=== PATIENT | female | born 1940 | race Hispanic/Latino ===

== ENCOUNTER 2021-03-04 10:03 | Outpatient (CLI) | payer MEDICARE | END 2021-03-04 10:04 | disposition home or self-care (01) | LOC: CSHMAMMO 10:03 | PROVIDERS: ATTEND Family Medicine | DX: Z12.31 Encounter for screening mammogram for malignant neoplasm of breast (principal) | CPT/HCPCS: 77063; 77067 ==

== ENCOUNTER 2021-12-11 09:16 | Outpatient (CLI) | payer MEDICARE ==
[2021-12-11 21:30] LABS: SARS-CoV-2 PCR by NAA Not Detected (NotDetected)
== END 2021-12-11 09:17 | disposition home or self-care (01) ==
LOC: CSHLAB 09:16
PROVIDERS: ATTEND Surgery
DX: Z20.822 Contact with and (suspected) exposure to COVID-19 (principal)
CPT/HCPCS: U0003; U0005

== ENCOUNTER 2021-12-13 09:18 | Outpatient (CLI) | payer MEDICARE ==
[2021-12-13 10:19] LABS: Hemoglobin 12.1 g/dL (12.0-15.5); Mean Corpuscular HGB CONC 32.3 g/dL (32.0-36.0); Mean Corpuscular Hemoglobin 30.6 pg (27.0-33.0); Mean Corpuscular Volume 94.9 fl (81.6-98.3); Platelet Count 325 10x3/uL (150-450); RBC Distribution Width 12.7 % (11.5-14.5); Red Blood Cell (RBC) Count 3.95 10x6/uL (3.90-5.03); White Blood Cell (WBC) Count 6.8 10x3/uL (3.5-10.5)
[2021-12-13 10:44] LABS: ALT (SGPT) 116 U/L (8-55); AST (SGOT) 122 U/L (5-34); Albumin 4.2 g/dL (3.4-4.8); Alkaline Phosphatase 329 U/L (40-110); Anion Gap 13 mmol/L (10-20); BUN (Urea Nitrogen) 7 mg/dL (9.8-20.1); Bilirubin, Total 1.5 mg/dL (0.2-1.2); Calc. Creatinine Clearance 0 mL/min (70-130); Calcium 10.2 mg/dL (7.8-10.44); Carbon Dioxide 28 mmol/L (23-31); Chloride 103 mmol/L (98-107); Globulin 2.8 g/dL (2.4-3.5); Glucose 116 mg/dL (83-110); Sodium 140 mmol/L (136-145)
[2021-12-13 19:56] LABS: SARS-CoV-2 PCR by NAA Not Detected (NotDetected)
== END 2021-12-13 09:19 | disposition home or self-care (01) ==
LOC: CSHLAB 09:18
PROVIDERS: ATTEND Surgery
DX: Z01.818 Encounter for other preprocedural examination (principal); Z20.822 Contact with and (suspected) exposure to COVID-19
CPT/HCPCS: 80053; 85027; 93005; 93010; U0003; U0005

== ENCOUNTER 2021-12-16 09:23 | Outpatient (CLI) | payer MEDICARE | END 2021-12-16 09:24 | disposition home or self-care (01) | LOC: CSHRAD 09:23 | PROVIDERS: ATTEND Surgery | DX: K80.50 Calculus of bile duct without cholangitis or cholecystitis without obstruction (principal); K21.9 Gastro-esophageal reflux disease without esophagitis | CPT/HCPCS: 74246 ==

== ENCOUNTER 2021-12-17 06:21 | Day surgery (SDC) | payer MEDICARE, OTHER ==
[2021-12-16 11:23] VITALS: BMI 25.8
[2021-12-17] MEDS ORDERED: EPINEPHrine 1 MG/ML AMP ONE (06:42)
[2021-12-17] MEDS ORDERED: Bupivacaine 0.25% HCL 30 ML VIAL ONE (06:42)
[2021-12-17] MEDS ORDERED: Iopamidol 0 ML ONE (07:00)
[2021-12-17] MEDS ORDERED: Lidocaine 1% MPF 2 ML VIAL ONE (07:00)
[2021-12-17] MEDS ORDERED: ceFAZolin 2 GM/Dextrose 50 ML IVPB ONE (08:07)
[2021-12-17] MEDS ORDERED: Phenylephrine 10 MG/ML VIAL ONE (08:16)
[2021-12-17] MEDS ORDERED: Fentanyl 100 MCG/2 ML VIAL ONE ×2 (08:25→10:24)
[2021-12-17] MEDS ORDERED: Lidocaine 1% PF 5 ML VIAL ONE ×2 (08:25→08:33)
[2021-12-17] MEDS ORDERED: PROPOFOL 20 ML ONE (08:25)
[2021-12-17] MEDS ORDERED: Dexamethasone 4 mg/ml Vial ONE (08:26)
[2021-12-17] MEDS ORDERED: Succinylcholine 200 MG/10 ml SYRINGE FS ONE (08:26)
[2021-12-17] MEDS ORDERED: PHENYLEPHRINE-NS 100 MCG/ML 10 ML SYRINGE ONE (08:26)
[2021-12-17] MEDS ORDERED: Glycopyrrolate 0.2 MG/ML 5 ML SYRINGE ONE ×2 (08:26→08:40)
[2021-12-17] MEDS ORDERED: Rocuronium Bromide 10 MG/ML (10ML VIAL) ONE (08:26)
[2021-12-17] MEDS ORDERED: Ondansetron PF 4 MG/2 ML Vial ONE (08:26)
== END 2021-12-17 11:40 | disposition home or self-care (01) ==
LOC: CSHSDC 06:21
PROVIDERS: ATTEND Surgery
PROC: 0DB98ZZ Excision of Duodenum, Via Natural or Artificial Opening Endoscopic (ICD-10-PCS; principal; 2021-12-17)
PROC: 0DB68ZZ Excision of Stomach, Via Natural or Artificial Opening Endoscopic (ICD-10-PCS; 2021-12-17)
PROC: 0FT44ZZ Resection of Gallbladder, Percutaneous Endoscopic Approach (ICD-10-PCS; 2021-12-17)
DX: K80.10 Calculus of gallbladder with chronic cholecystitis without obstruction (principal); K29.50 Unspecified chronic gastritis without bleeding; K31.7 Polyp of stomach and duodenum; K22.89 Other specified disease of esophagus; K44.9 Diaphragmatic hernia without obstruction or gangrene; Z79.899 Other long term (current) drug therapy; Z79.84 Long term (current) use of oral hypoglycemic drugs
CPT/HCPCS: 43239; 43251; 47562; 82962; C1713; 36416; 88304; 88305; J0171; J0690; J1100; J2370; J2405; J2704; J3010; Q9967; S0020